=== PATIENT | male | born 1940 | race Caucasian/White ===

== ENCOUNTER → 2023-05-04 11:25 | Outpatient (REF) | payer MEDICARE, OTHER, SELFPAY ==
[2023-05-04 12:46] LABS: % Basophils 0.2 % (0-2); % Eosinophils 2.8 % (0-6); % Immature Granulocytes 0.5 % (0-0.5); % Lymphocytes 15.4 % (20.5-51.1); % Monocytes 8.5 % (1.7-9.3); % Neutrophils 72.6 % (42.2-75.2); Absolute Eosinophils 0.2 10^3/uL (0-0.7); Absolute Monocytes 0.5 10^3/uL (0.1-0.6); Absolute Neutrophils 4.6 10^3/uL (1.4-6.5); Hematocrit 36.3 % (39.0-52.0); Hemoglobin 11.5 g/dL (13.0-18.0); Mean Corp Hgb Conc. 31.7 g/dL (33.0-37.0); Mean Corpuscular Volume 91.7 fL (80.0-94.0); Mean Platelet Volume 9.4 fL (7.4-10.4); Nucleated Red Blood Cells % 0 % (-); Platelet Count 226 10^3/uL (130-400); Red Blood Cell Count 3.96 10^6/uL (4.70-6.10); Red Cell Dist. Width 13.4 % (11.5-14.5); White Blood Cell Count 6.4 10^3/uL (4.8-10.8)
[2023-05-04 13:11] LABS: ALT (SGPT) 18 U/L (0-50); AST (SGOT) 25 U/L (17-59); Albumin 3.8 g/dl (3.5-5.0); Alkaline Phosphatase 115 U/L (38-126); Blood Urea Nitrogen 43 mg/dl (9-20); Calcium 9.2 mg/dl (8.4-10.2); Carbon Dioxide 23 mmol/L (22-30); Chloride 106 mmol/L (98-107); Glucose 78 mg/dl (70-99); HDL Cholesterol 31 mg/dl; LDL Cholesterol, Calculated 46 mg/dl; Potassium 4.3 mmol/L (3.5-5.1); Sodium 142 mmol/L (135-145); Total Bilirubin 0.6 mg/dl (0.2-1.3); Total Cholesterol 105 mg/dl (50-199); Total Protein 6.1 g/dl (6.3-8.2); Triglyceride 142 mg/dl (10-149); Very Low Density Lipoprotein 28 mg/dl (0-30); eGFR 37.35
[2023-05-04 13:40] LABS: TSH 5.95 uIU/ml (0.47-4.68)
[2023-05-04 13:42] LABS: Microalbumin, Random Urine 43.3 mg/dl (0.6-1.7); Microalbumin/creatinine Ratio 457.7 mg/g
[2023-05-04 14:24] LABS: Glycohemoglobin (HgbA1c) 7.1 % (4.0-5.6)
== END ==
LOC: REG 11:25
PROVIDERS: ATTENDING PHYSICIAN Family Medicine
DX: E11.69 Type 2 diabetes mellitus with other specified complication (principal); N18.32 Chronic kidney disease, stage 3b; R80.9 Proteinuria, unspecified; I10 Essential (primary) hypertension
CPT/HCPCS: 36415; 80053; 80061; 82043; 82570; 83036; 84443; 85025

== ENCOUNTER → 2023-08-04 12:18 | Outpatient (REF) | payer MEDICARE, OTHER, SELFPAY ==
[2023-08-04 13:52] LABS: Free T4 0.85 ng/dl (0.78-2.19)
[2023-08-04 14:06] LABS: TSH 5.28 uIU/ml (0.47-4.68)
== END ==
LOC: REG 12:18
PROVIDERS: ATTENDING PHYSICIAN Family Medicine
DX: E03.8 Other specified hypothyroidism (principal)
CPT/HCPCS: 36415; 84439; 84443

== ENCOUNTER → 2023-08-11 13:25 | Outpatient (REF) | payer MEDICARE, OTHER, SELFPAY ==
[2023-08-11 14:07] LABS: % Basophils 0.1 % (0-2); % Eosinophils 3.1 % (0-6); % Immature Granulocytes 0.4 % (0-0.5); % Lymphocytes 21.1 % (20.5-51.1); % Monocytes 9.4 % (1.7-9.3); % Neutrophils 65.9 % (42.2-75.2); Absolute Eosinophils 0.2 10^3/uL (0-0.7); Absolute Lymphocytes 1.5 10^3/uL (1.2-3.4); Absolute Monocytes 0.7 10^3/uL (0.1-0.6); Absolute Neutrophils 4.6 10^3/uL (1.4-6.5); Hematocrit 35.2 % (39.0-52.0); Mean Corp Hgb Conc. 31.3 g/dL (33.0-37.0); Mean Corpuscular Hgb 28.9 pg (27.0-31.0); Mean Corpuscular Volume 92.4 fL (80.0-94.0); Mean Platelet Volume 8.9 fL (7.4-10.4); Nucleated Red Blood Cells % 0 % (-); Platelet Count 289 10^3/uL (130-400); Red Blood Cell Count 3.81 10^6/uL (4.70-6.10); Red Cell Dist. Width 13.6 % (11.5-14.5)
[2023-08-11 14:28] LABS: NT-proBNP 1480 pg/ml
[2023-08-11 14:34] LABS: Glycohemoglobin (HgbA1c) 6.6 % (4.0-5.6)
[2023-08-11 14:36] LABS: ALT (SGPT) 20 U/L (0-50); AST (SGOT) 25 U/L (17-59); Alkaline Phosphatase 131 U/L (38-126); Blood Urea Nitrogen 27 mg/dl (9-20); Calcium 9.5 mg/dl (8.4-10.2); Carbon Dioxide 32 mmol/L (22-30); Chloride 101 mmol/L (98-107); Glucose 92 mg/dl (70-99); Potassium 3.6 mmol/L (3.5-5.1); Sodium 142 mmol/L (135-145); Total Bilirubin 0.7 mg/dl (0.2-1.3); Total Protein 6.6 g/dl (6.3-8.2)
[2023-08-11 16:42] LABS: Microalbumin, Random Urine > 57.0 mg/dl (0.6-1.7)
== END ==
LOC: REG 13:25
PROVIDERS: ATTENDING PHYSICIAN Family Medicine
DX: R05.1 Acute cough (principal); R60.0 Localized edema; I50.32 Chronic diastolic (congestive) heart failure; E11.59 Type 2 diabetes mellitus with other circulatory complications; E11.22 Type 2 diabetes mellitus with diabetic chronic kidney disease; E11.69 Type 2 diabetes mellitus with other specified complication
CPT/HCPCS: 36415; 71046; 80053; 82043; 82570; 83036; 83880; 85025

== ENCOUNTER → 2023-08-16 14:29 | Outpatient (REF) | payer MEDICARE, OTHER, SELFPAY ==
[2023-08-16 15:57] LABS: Blood Urea Nitrogen 36 mg/dl (9-20); Calcium 9.1 mg/dl (8.4-10.2); Carbon Dioxide 31 mmol/L (22-30); Chloride 99 mmol/L (98-107); Glucose 229 mg/dl (70-99); Potassium 3.8 mmol/L (3.5-5.1); Sodium 141 mmol/L (135-145); eGFR 37.35
== END ==
LOC: REG 14:29
PROVIDERS: ATTENDING PHYSICIAN Family Medicine
DX: R60.0 Localized edema (principal); N18.32 Chronic kidney disease, stage 3b
CPT/HCPCS: 36415; 80048

== ENCOUNTER → 2023-08-27 12:48 | Outpatient (REF) | payer MEDICARE, OTHER, SELFPAY ==
[2023-08-27 13:21] LABS: % Basophils 0.2 % (0-2); % Eosinophils 3.5 % (0-6); % Immature Granulocytes 0.3 % (0-0.5); % Lymphocytes 22.1 % (20.5-51.1); % Monocytes 10.6 % (1.7-9.3); % Neutrophils 63.3 % (42.2-75.2); Absolute Eosinophils 0.2 10^3/uL (0-0.7); Absolute Lymphocytes 1.3 10^3/uL (1.2-3.4); Absolute Monocytes 0.6 10^3/uL (0.1-0.6); Absolute Neutrophils 3.6 10^3/uL (1.4-6.5); Hematocrit 36.3 % (39.0-52.0); Hemoglobin 11.4 g/dL (13.0-18.0); Mean Corp Hgb Conc. 31.4 g/dL (33.0-37.0); Mean Corpuscular Hgb 28.5 pg (27.0-31.0); Mean Corpuscular Volume 90.8 fL (80.0-94.0); Mean Platelet Volume 9.1 fL (7.4-10.4); Nucleated Red Blood Cells % 0 % (-); Platelet Count 251 10^3/uL (130-400); Red Cell Dist. Width 13.5 % (11.5-14.5); White Blood Cell Count 5.7 10^3/uL (4.8-10.8)
[2023-08-27 13:46] LABS: Blood Urea Nitrogen 43 mg/dl (9-20); Calcium 9.3 mg/dl (8.4-10.2); Carbon Dioxide 29 mmol/L (22-30); Chloride 104 mmol/L (98-107); Glucose 107 mg/dl (70-99); Iron 67 ug/dl (49-181); Potassium 4.4 mmol/L (3.5-5.1); Sodium 142 mmol/L (135-145)
[2023-08-27 13:54] LABS: Percent Saturation 20 % (20-50); Total Iron Binding Capacity 321 ug/dl (261-462)
[2023-08-27 14:18] LABS: Ferritin 19.3 ng/ml (17.9-464.0)
== END ==
LOC: REG 12:48
PROVIDERS: ATTENDING PHYSICIAN Family Medicine
DX: D64.9 Anemia, unspecified (principal); E87.6 Hypokalemia
CPT/HCPCS: 36415; 80048; 82728; 83540; 83550; 85025

== ENCOUNTER → 2023-09-21 13:14 | Outpatient (REF) | payer MEDICARE, OTHER, SELFPAY ==
[2023-09-21 14:47] LABS: ALT (SGPT) 21 U/L (0-50); AST (SGOT) 26 U/L (17-59); Albumin 4.4 g/dl (3.5-5.0); Alkaline Phosphatase 142 U/L (38-126); Blood Urea Nitrogen 38 mg/dl (9-20); Calcium 8.9 mg/dl (8.4-10.2); Carbon Dioxide 30 mmol/L (22-30); Chloride 104 mmol/L (98-107); Glucose 80 mg/dl (70-99); Potassium 4.2 mmol/L (3.5-5.1); Sodium 143 mmol/L (135-145); Total Bilirubin 0.7 mg/dl (0.2-1.3)
== END ==
LOC: REG 13:14
PROVIDERS: ATTENDING PHYSICIAN Family Medicine
DX: R60.0 Localized edema (principal); E11.59 Type 2 diabetes mellitus with other circulatory complications; N18.32 Chronic kidney disease, stage 3b; I11.0 Hypertensive heart disease with heart failure
CPT/HCPCS: 36415; 80053

== ENCOUNTER → 2023-10-13 11:42 | Outpatient (REF) | payer MEDICARE, OTHER, SELFPAY ==
[2023-10-13 13:41] LABS: Hemoglobin 11.4 g/dL (13.0-18.0)
[2023-10-13 14:02] LABS: Albumin 4.2 g/dl (3.5-5.0); Blood Urea Nitrogen 35 mg/dl (9-20); Calcium 9.1 mg/dl (8.4-10.2); Carbon Dioxide 27 mmol/L (22-30); Chloride 103 mmol/L (98-107); Glucose 162 mg/dl (70-99); Phosphorus 4.3 mg/dl (2.5-4.5); Potassium 4.5 mmol/L (3.5-5.1); Sodium 143 mmol/L (135-145); eGFR 34.79
[2023-10-13 15:42] LABS: Protein/creatinine Ratio 1.5; Urine Protein 149 mg/dl
[2023-10-13 18:06] LABS: Microalbumin, Random Urine > 57.0 mg/dl (0.6-1.7)
[2023-10-16 08:53] LABS: Intact PTH 111.6 pg/ml (13.6-85.8)
== END ==
LOC: REG 11:42
PROVIDERS: ATTENDING PHYSICIAN Specialist; FAMILY PHYSICIAN Family Medicine
DX: N18.32 Chronic kidney disease, stage 3b (principal); E11.21 Type 2 diabetes mellitus with diabetic nephropathy
CPT/HCPCS: 36415; 80069; 82043; 82570; 83970; 84156; 85018

== ENCOUNTER → 2023-10-25 12:08 | Outpatient (REF) | payer MEDICARE, OTHER, SELFPAY ==
[2023-10-28 01:50] LABS: Vitamin D 1,25 Dihydroxy 23.7 pg/mL (19.9-79.3)
== END ==
LOC: REG 12:08
PROVIDERS: ATTENDING PHYSICIAN Family Medicine
DX: Z79.899 Other long term (current) drug therapy (principal)
CPT/HCPCS: 36415; 82652

== ENCOUNTER → 2023-12-22 11:03 | Outpatient (REF) | payer MEDICARE, OTHER, SELFPAY ==
[2023-12-22 12:05] LABS: % Basophils 0.2 % (0-2); % Eosinophils 4.3 % (0-6); % Immature Granulocytes 0.2 % (0-0.5); % Lymphocytes 22.1 % (20.5-51.1); % Monocytes 11.9 % (1.7-9.3); % Neutrophils 61.3 % (42.2-75.2); Absolute Eosinophils 0.2 10^3/uL (0-0.7); Absolute Monocytes 0.6 10^3/uL (0.1-0.6); Absolute Neutrophils 2.8 10^3/uL (1.4-6.5); Hemoglobin 11.1 g/dL (13.0-18.0); Mean Corp Hgb Conc. 30.8 g/dL (33.0-37.0); Mean Corpuscular Hgb 28.3 pg (27.0-31.0); Mean Corpuscular Volume 91.8 fL (80.0-94.0); Mean Platelet Volume 9.4 fL (7.4-10.4); Nucleated Red Blood Cells % 0 % (-); Platelet Count 211 10^3/uL (130-400); Red Blood Cell Count 3.92 10^6/uL (4.70-6.10); Red Cell Dist. Width 14.6 % (11.5-14.5); White Blood Cell Count 4.6 10^3/uL (4.8-10.8)
[2023-12-22 12:23] LABS: Glycohemoglobin (HgbA1c) 6.7 % (4.0-5.6)
[2023-12-22 12:28] LABS: ALT (SGPT) 25 U/L (0-50); AST (SGOT) 25 U/L (17-59); Albumin 4.2 g/dl (3.5-5.0); Alkaline Phosphatase 124 U/L (38-126); Blood Urea Nitrogen 35 mg/dl (9-20); Carbon Dioxide 32 mmol/L (22-30); Chloride 102 mmol/L (98-107); Glucose 88 mg/dl (70-99); Potassium 4.4 mmol/L (3.5-5.1); Sodium 147 mmol/L (135-145); Total Bilirubin 0.7 mg/dl (0.2-1.3); Total Protein 6.4 g/dl (6.3-8.2); eGFR 34.79
== END ==
LOC: REG 11:03
PROVIDERS: ATTENDING PHYSICIAN Family Medicine
DX: E11.21 Type 2 diabetes mellitus with diabetic nephropathy (principal); N18.32 Chronic kidney disease, stage 3b
CPT/HCPCS: 36415; 80053; 83036; 85025

== ENCOUNTER → 2024-02-14 12:01 | Outpatient (REF) | payer MEDICARE, OTHER, SELFPAY ==
[2024-02-14 13:08] LABS: % Basophils 0.2 % (0-2); % Immature Granulocytes 0.2 % (0-0.5); % Monocytes 10.6 % (1.7-9.3); Absolute Eosinophils 0.2 10^3/uL (0-0.7); Absolute Lymphocytes 1.2 10^3/uL (1.2-3.4); Absolute Monocytes 0.6 10^3/uL (0.1-0.6); Absolute Neutrophils 3.7 10^3/uL (1.4-6.5); Hematocrit 36.8 % (39.0-52.0); Hemoglobin 11.7 g/dL (13.0-18.0); Mean Corp Hgb Conc. 31.8 g/dL (33.0-37.0); Mean Corpuscular Volume 91.1 fL (80.0-94.0); Mean Platelet Volume 9.7 fL (7.4-10.4); Nucleated Red Blood Cells % 0 % (-); Platelet Count 220 10^3/uL (130-400); Red Blood Cell Count 4.04 10^6/uL (4.70-6.10); Red Cell Dist. Width 13.7 % (11.5-14.5); White Blood Cell Count 5.7 10^3/uL (4.8-10.8)
[2024-02-14 13:35] LABS: NT-proBNP 465 pg/ml
[2024-02-14 14:00] LABS: Protein/creatinine Ratio 0.9; Urine Protein 75 mg/dl
[2024-02-14 14:02] LABS: ALT (SGPT) 25 U/L (0-50); AST (SGOT) 27 U/L (17-59); Albumin 4.2 g/dl (3.5-5.0); Alkaline Phosphatase 149 U/L (38-126); Blood Urea Nitrogen 43 mg/dl (9-20); Calcium 8.9 mg/dl (8.4-10.2); Carbon Dioxide 33 mmol/L (22-30); Chloride 100 mmol/L (98-107); Glucose 114 mg/dl (70-99); Potassium 4.3 mmol/L (3.5-5.1); Sodium 144 mmol/L (135-145); Total Bilirubin 0.5 mg/dl (0.2-1.3); Total Protein 6.6 g/dl (6.3-8.2); eGFR 32.71
[2024-02-14 14:13] LABS: Phosphorus 3.8 mg/dl (2.5-4.5)
[2024-02-15 10:17] LABS: Intact PTH 127.1 pg/ml (13.6-85.8)
[2024-02-16 03:45] LABS: Beta-2-Microglobulin 5.8 mg/L (<=3.0)
[2024-02-16 22:54] LABS: Albumin 3.92 g/dL (3.75-5.01); Alpha 2 Globulin 0.81 g/dL (0.48-1.05); Free Kappa Light Chains,Quant 60.04 mg/L (3.30-19.40); Free Lambda Light Chains,Quant 23.29 mg/L (5.71-26.30); IgA 125 mg/dL (68-408); IgG 848 mg/dL (768-1632); IgM 34 mg/dL (35-263); Immunofixation Electrophoresis IFE Done; Kappa/Lambda Fr Light Ratio 2.58 (0.26-1.65); Total Protein-Electrophoresis 6.6 g/dL (6.3-8.2)
== END ==
LOC: REG 12:01
PROVIDERS: Internal Medicine Hematology & Oncology; ATTENDING PHYSICIAN Specialist; FAMILY PHYSICIAN Family Medicine
DX: N18.32 Chronic kidney disease, stage 3b (principal); R89.4 Abnormal immunological findings in specimens from other organs, systems and tissues; N04.9 Nephrotic syndrome with unspecified morphologic changes
CPT/HCPCS: 36415; 80053; 82232; 82570; 82784; 83521; 83880; 83970; 84100; 84155; 84156; 84165; 85025; 86334

== ENCOUNTER → 2024-04-17 13:05 | Outpatient (REF) | payer MEDICARE, OTHER, SELFPAY ==
[2024-04-17 14:05] LABS: % Basophils 0.2 % (0-2); % Eosinophils 2.4 % (0-6); % Immature Granulocytes 0.3 % (0-0.5); % Lymphocytes 23.2 % (20.5-51.1); % Monocytes 9.6 % (1.7-9.3); % Neutrophils 64.3 % (42.2-75.2); Absolute Eosinophils 0.2 10^3/uL (0-0.7); Absolute Lymphocytes 1.5 10^3/uL (1.2-3.4); Absolute Monocytes 0.6 10^3/uL (0.1-0.6); Absolute Neutrophils 4.1 10^3/uL (1.4-6.5); Hematocrit 39.2 % (39.0-52.0); Hemoglobin 12.5 g/dL (13.0-18.0); Mean Corp Hgb Conc. 31.9 g/dL (33.0-37.0); Mean Corpuscular Hgb 28.9 pg (27.0-31.0); Mean Corpuscular Volume 90.7 fL (80.0-94.0); Mean Platelet Volume 9.4 fL (7.4-10.4); Nucleated Red Blood Cells % 0 % (-); Platelet Count 226 10^3/uL (130-400); Red Blood Cell Count 4.32 10^6/uL (4.70-6.10); Red Cell Dist. Width 13.8 % (11.5-14.5); White Blood Cell Count 6.4 10^3/uL (4.8-10.8)
[2024-04-17 14:23] LABS: ALT (SGPT) 26 U/L (0-50); AST (SGOT) 27 U/L (17-59); Albumin 4.5 g/dl (3.5-5.0); Alkaline Phosphatase 133 U/L (38-126); Blood Urea Nitrogen 45 mg/dl (9-20); Calcium 9.3 mg/dl (8.4-10.2); Carbon Dioxide 34 mmol/L (22-30); Chloride 98 mmol/L (98-107); Glucose 122 mg/dl (70-99); HDL Cholesterol 29 mg/dl; LDL Cholesterol, Calculated 77 mg/dl; Potassium 4.5 mmol/L (3.5-5.1); Sodium 142 mmol/L (135-145); Total Bilirubin 0.7 mg/dl (0.2-1.3); Total Cholesterol 164 mg/dl (50-199); Total Protein 7.2 g/dl (6.3-8.2); Triglyceride 292 mg/dl (10-149); Very Low Density Lipoprotein 58 mg/dl (0-30); eGFR 30.85
[2024-04-17 14:39] LABS: Glycohemoglobin (HgbA1c) 7.3 % (4.0-5.6)
[2024-04-17 14:53] LABS: TSH Reflex To Free T4 5.62 uIU/ml (0.47-4.68)
[2024-04-17 15:23] LABS: Free T4 0.96 ng/dl (0.78-2.19)
[2024-04-17 15:27] LABS: Microalbumin, Random Urine 46.2 mg/dl (0.6-1.7); Microalbumin/creatinine Ratio 509.9 mg/g
== END ==
LOC: REG 13:05
PROVIDERS: ATTENDING PHYSICIAN Family Medicine
DX: E11.59 Type 2 diabetes mellitus with other circulatory complications (principal); E11.22 Type 2 diabetes mellitus with diabetic chronic kidney disease; E11.69 Type 2 diabetes mellitus with other specified complication; E11.21 Type 2 diabetes mellitus with diabetic nephropathy; N18.32 Chronic kidney disease, stage 3b; R80.9 Proteinuria, unspecified; I11.0 Hypertensive heart disease with heart failure; E78.2 Mixed hyperlipidemia
CPT/HCPCS: 36415; 80053; 80061; 82043; 82570; 83036; 84439; 84443; 85025

== ENCOUNTER → 2024-05-17 10:49 | Outpatient (REF) | payer MEDICARE, OTHER, SELFPAY | LOC: RCS 10:49 | PROVIDERS: ATTENDING PHYSICIAN Internal Medicine Cardiovascular Disease; FAMILY PHYSICIAN Family Medicine | DX: I10 Essential (primary) hypertension (principal); R60.0 Localized edema; I48.92 Unspecified atrial flutter | CPT/HCPCS: 93306 ==

== ENCOUNTER → 2024-08-25 13:15 | Outpatient (REF) | payer MEDICARE, OTHER, SELFPAY ==
[2024-08-25 14:01] LABS: % Eosinophils 3.1 % (0-6); % Immature Granulocytes 0.2 % (0-0.5); % Lymphocytes 23.7 % (20.5-51.1); % Monocytes 10.7 % (1.7-9.3); % Neutrophils 62.3 % (42.2-75.2); Absolute Eosinophils 0.2 10^3/uL (0-0.7); Absolute Lymphocytes 1.2 10^3/uL (1.2-3.4); Absolute Monocytes 0.6 10^3/uL (0.1-0.6); Absolute Neutrophils 3.3 10^3/uL (1.4-6.5); Hematocrit 36.1 % (39.0-52.0); Hemoglobin 11.4 g/dL (13.0-18.0); Mean Corp Hgb Conc. 31.6 g/dL (33.0-37.0); Mean Corpuscular Hgb 28.9 pg (27.0-31.0); Mean Corpuscular Volume 91.4 fL (80.0-94.0); Mean Platelet Volume 9.4 fL (7.4-10.4); Nucleated Red Blood Cells % 0 % (-); Platelet Count 220 10^3/uL (130-400); Red Blood Cell Count 3.95 10^6/uL (4.70-6.10); Red Cell Dist. Width 13.6 % (11.5-14.5); White Blood Cell Count 5.2 10^3/uL (4.8-10.8)
[2024-08-25 14:31] LABS: Glycohemoglobin (HgbA1c) 6.9 % (4.0-5.6)
[2024-08-25 14:54] LABS: ALT (SGPT) 24 U/L (0-50); AST (SGOT) 23 U/L (17-59); Albumin 4.1 g/dl (3.5-5.0); Alkaline Phosphatase 125 U/L (38-126); Blood Urea Nitrogen 45 mg/dl (9-20); Carbon Dioxide 29 mmol/L (22-30); Chloride 109 mmol/L (98-107); Glucose 84 mg/dl (70-99); Phosphorus 3.9 mg/dl (2.5-4.5); Potassium 4.3 mmol/L (3.5-5.1); Sodium 145 mmol/L (135-145); Total Bilirubin 0.7 mg/dl (0.2-1.3); Total Protein 6.6 g/dl (6.3-8.2); eGFR 34.79
[2024-08-25 15:07] LABS: Protein/creatinine Ratio 0.6; Urine Protein 62 mg/dl
[2024-08-25 15:24] LABS: Microalbumin, Random Urine 31.7 mg/dl (0.6-1.7); Microalbumin/creatinine Ratio 290.6 mg/g; TSH Reflex To Free T4 4.68 uIU/ml (0.47-4.68)
[2024-08-26 09:33] LABS: Intact PTH 142.4 pg/ml (13.6-85.8)
== END ==
LOC: REG 13:15
PROVIDERS: ATTENDING PHYSICIAN Specialist; FAMILY PHYSICIAN Family Medicine
DX: E11.59 Type 2 diabetes mellitus with other circulatory complications (principal); E11.22 Type 2 diabetes mellitus with diabetic chronic kidney disease; E11.622 Type 2 diabetes mellitus with other skin ulcer; E11.21 Type 2 diabetes mellitus with diabetic nephropathy; N18.32 Chronic kidney disease, stage 3b; I11.0 Hypertensive heart disease with heart failure; I27.20 Pulmonary hypertension, unspecified; E03.8 Other specified hypothyroidism; D47.2 Monoclonal gammopathy; R60.0 Localized edema; I87.2 Venous insufficiency (chronic) (peripheral)
CPT/HCPCS: 36415; 80053; 82043; 82570; 83036; 83970; 84100; 84156; 84443; 85025

== ENCOUNTER → 2025-01-18 12:53 | Outpatient (REF) | payer MEDICARE, OTHER, SELFPAY ==
[2025-01-18 13:22] LABS: Hematocrit 40.5 % (39.0-52.0); Hemoglobin 12.4 g/dL (13.0-18.0); Mean Corp Hgb Conc. 30.6 g/dL (33.0-37.0); Mean Corpuscular Volume 93.1 fL (80.0-94.0); Nucleated Red Blood Cells % 0 % (-); Platelet Count 206 10^3/uL (130-400); Red Cell Dist. Width 13.5 % (11.5-14.5)
[2025-01-18 13:55] LABS: ALT (SGPT) 24 U/L (0-50); AST (SGOT) 22 U/L (17-59); Albumin 4.5 g/dl (3.5-5.0); Alkaline Phosphatase 126 U/L (38-126); Blood Urea Nitrogen 59 mg/dl (9-20); Calcium 9.1 mg/dl (8.4-10.2); Carbon Dioxide 29 mmol/L (22-30); Chloride 107 mmol/L (98-107); Glucose 120 mg/dl (70-99); HDL Cholesterol 29 mg/dl; LDL Cholesterol, Calculated 62 mg/dl; Potassium 4.0 mmol/L (3.5-5.1); Sodium 142 mmol/L (135-145); Total Protein 7.2 g/dl (6.3-8.2); Uric Acid 9.6 mg/dl (3.5-8.5); Very Low Density Lipoprotein 29 mg/dl (0-30); eGFR 27.49
== END ==
LOC: REG 12:53
PROVIDERS: ATTENDING PHYSICIAN Specialist; FAMILY PHYSICIAN Family Medicine
DX: E11.59 Type 2 diabetes mellitus with other circulatory complications (principal); E78.2 Mixed hyperlipidemia; D64.9 Anemia, unspecified; M1A.9XX0 Chronic gout, unspecified, without tophus (tophi); N18.32 Chronic kidney disease, stage 3b
CPT/HCPCS: 36415; 80053; 80061; 82570; 83970; 84100; 84156; 84550; 85025

== ENCOUNTER → 2025-02-19 11:21 | Outpatient (REF) | payer MEDICARE, OTHER, SELFPAY ==
[2025-02-19 12:07] LABS: Hematocrit 37.0 % (39.0-52.0); Hemoglobin 11.3 g/dL (13.0-18.0); Mean Corp Hgb Conc. 30.5 g/dL (33.0-37.0); Mean Corpuscular Volume 92.0 fL (80.0-94.0); Nucleated Red Blood Cells % 0 % (-); Platelet Count 205 10^3/uL (130-400); Red Cell Dist. Width 14.0 % (11.5-14.5)
[2025-02-19 13:03] LABS: ALT (SGPT) 22 U/L (0-50); AST (SGOT) 22 U/L (17-59); Albumin 4.1 g/dl (3.5-5.0); Alkaline Phosphatase 114 U/L (38-126); Blood Urea Nitrogen 40 mg/dl (9-20); Calcium 8.7 mg/dl (8.4-10.2); Carbon Dioxide 32 mmol/L (22-30); Chloride 106 mmol/L (98-107); Glucose 86 mg/dl (70-99); Potassium 4.1 mmol/L (3.5-5.1); Sodium 142 mmol/L (135-145); Total Protein 6.6 g/dl (6.3-8.2); eGFR 36.89
[2025-02-19 14:21] LABS: Glycohemoglobin (HgbA1c) 6.6 % (4.0-5.9)
== END ==
LOC: REG 11:21
PROVIDERS: ATTENDING PHYSICIAN Specialist; FAMILY PHYSICIAN Internal Medicine Hematology & Oncology
DX: N18.4 Chronic kidney disease, stage 4 (severe) (principal); E11.21 Type 2 diabetes mellitus with diabetic nephropathy; R89.4 Abnormal immunological findings in specimens from other organs, systems and tissues; N04.9 Nephrotic syndrome with unspecified morphologic changes
CPT/HCPCS: 36415; 80053; 82232; 82784; 83036; 83521; 84155; 84165; 85025; 86334